=== PATIENT | male | born 1965 | race Caucasian/White ===

== ENCOUNTER 2016-12-30 10:30 | Day surgery (SDC) | payer OTHER ==
[~2016-12-30] VITALS: Ht 162.6 cm; Wt 98.9 kg
[2016-12-30] VITALS (10 sets, daily range): BP systolic 128–156; BP diastolic 76–99; PULSE 54–80; RESP 12–18; O2SAT 92–98
[~2016-12-30 10:30] MED LIST: CeFAZolin Inj 2 GM in IV Premix 1 EACH IV ONE; Lactated Ringer's 1,000 ML IV ONE
[2016-12-30] MEDS ORDERED: Rocuronium 10 mg/mL 5 mL Inj ONE (10:31)
[2016-12-30] MEDS ORDERED: Propofol 10,000 mCg/mL 20 mL Inj ONE (10:31)
[2016-12-30] MEDS ORDERED: Ondansetron 2 mg/mL 2 mL Inj ONE (10:31)
[2016-12-30] MEDS ORDERED: Glycopyrrolate 0.2 mg/mL 5 mL Inj ONE (10:31)
[2016-12-30] MEDS ORDERED: Neostigmine 1 mg/mL 5 mL Inj ONE (10:31)
[2016-12-30] MEDS ORDERED: Dexamethasone 4 mg/mL Inj ONE (10:31)
[2016-12-30] MEDS ORDERED: Ketamine 10 mg/mL 20 mL Inj ONE (10:31)
[2016-12-30] MEDS ORDERED: fentaNYL-PF 50 mCg/mL 2 mL Inj ONE (10:31)
--- NOTE | 2016-12-30 10:32 | PCM.HPANE ---
Patient Data Surgeon Admitting Provider: Attending Provider:Uriel Atkins MD Primary Care Physician: Other Provider: Reason for Visit Left Neck Subcutaneous Scalp Mass, Sebaceous Cyst Ht/WT & BMI Height (Feet): 5 Height (Inches): 3 Weight (Kilograms): 102.51 Body Mass Index 40.00 Allergies Coded Allergies: No Known Allergies (Unverified , 12/25/16) Past Anesthesia History Anesthesia History: Denies:: Anesthesia Reactions, Malignant Hyperthermia Diabetes History Hx Diabetes?: No MRSA MRSA: No Medications No Active Prescriptions or Reported Meds History History of ENT Problems?: Yes Other HEENT Pertinent History: S/P TONSILLECTOMY Hx of Heart Problems?: No Cardiovascular History: Denies:: Heart Murmur Hypertension Hx of Respiratory Problem?: No Respiratory History: Denies:: Use of C-PAP Machine Hx Neurologic Problems?: No Hx of GI Problems?: Yes Gastrointestinal History: Positive for:: Rectal Bleeding (S/P HEMORRHOIDECTOMY ) Other GI Pertinent History: OBESITY Hx of Problems?: No Male Hx: Denies:: Prostate Problems Scrotal Mass Testicular Surgery Skin History: Denies:: History Skin Disorders? 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 Hx Any Other Health Problems?: Yes Other History: Denies:: Cancer Endocrine Disease Hospitalization Thyroid Disease History Blood Transfusions: Denies:: Blood Transfusions Hx Diabetes: No Hx Alcohol Use: YesAlcoholic Drinks Per Day: 1-2/WEEKHave You Smoked inLast 12 mo: No Stop/Bang S-Snoring: Do You Snore Loudly: No T-Tired: feel tired, fatigued: No O-Obsered: Observed not breath: No P-Blood Pressure: treated: No B- Body Mass Index > 35 kg/m2: Yes A- Age over 50: Yes N- Neck Large Circumference: Yes G- Gender Male: Yes CARMELO Total Score: 4 Risk Assessment Category Category 1A: Patient has history of documented sleep apnea, and HAS NOT received any narcotic, sedative or anesthesia administration during this stay. Category 1B: Patient has history of documented sleep apnea, and HAS received any narcotic , sedative or anesthesia administration during this stay Category 2: Patient has SUSPECTED Obstructive Sleep Apnea, and HAS received any narcotic , sedative or anesthesia administration during this stay. Category 3: Patient has SUSPECTED Obstructive Sleep Apnea and HAS NOT received narcotic, sedative or anesthesia administration during this stay. Category 4: Outpatient in Procedural Areas with known sleep apnea or who screen positive for High Risk via the STOP/BANG questionnaire. Exam Exam General Appearance: Alert, Oriented X3, Cooperative, No Acute Distress HEENT/AIRWAY: MP 3 Lungs: Clear to Auscultation, Normal Air Movement Heart: Exam Unremarkable, Normal S1, Normal S2 Plan Impression Patient chart reviewed, patient interviewed and anesthestic plan with risks, benefits, and alternatives discussed, and informed consent obtained. ASA Physical Status: ASA2 Mod Systemic Disease Anesthetic Support Modalities: Hemodynamic Monitoring Anesthetic Plan: GA Bene/Risks/Altern/Consents: Yes HP Complete Prior to Induction: Yes Other will plan OETT due to anticipated need for rotational positioning. Phillip Salazar DO Dec 30, 2016 10:32
[2016-12-30] MEDS ORDERED: Bupivacaine-MPF 0.5% 30 mL Inj INFILTRATE ONE (12:28)
[2016-12-30] MEDS ORDERED: Lactated Ringer's 500 ML IV PRN (13:02)
[2016-12-30] MEDS ORDERED: Lactated Ringer's 1,000 ML IV SCH (13:02)
[2016-12-30] MEDS ORDERED: Ondansetron 2 mg/mL 2 mL Inj IVPUSH PRN (13:05)
[2016-12-30] MEDS ORDERED: Atropine 0.4 mg/mL Inj IVPUSH PRN (13:05)
[2016-12-30] MEDS ORDERED: HYDROmorphone 1 mg/mL Inj IVPUSH PRN (13:05)
[2016-12-30] MEDS ORDERED: Dexamethasone 4 mg/mL Inj IVPUSH PRN (13:05)
[2016-12-30] MEDS ORDERED: Labetalol 5 mg/mL 4 mL Inj IV PRN (13:05)
[2016-12-30] MEDS ORDERED: MetoCLOpramide 5 mg/mL 2 mL Inj IVPUSH PRN (13:05)
[2016-12-30] MEDS ORDERED: fentaNYL-PF 50 mCg/mL 2 mL Inj IVPUSH PRN (13:05)
[2016-12-30] MEDS ORDERED: EPHEDrine Sulfate 50 mg/mL Inj IVPUSH PRN (13:05)
[2016-12-30] MEDS ORDERED: Phenylephrine 10,000 mCg/mL Inj IVPUSH PRN (13:05)
[2016-12-30] MEDS ORDERED: Lactated Ringer's 1,000 ML IV ONE (13:25)
[2016-12-30] MEDS ORDERED: OXYC5TAB72 PO (14:27)
[2016-12-30] MEDS ORDERED: POLY17PO6 PO (14:27)
--- NOTE | 2016-12-30 14:27 | PCM.SURGPO ---
Immediate Operative Note Date of Surgery: Dec 30, 2016 Pre Operative Diagnosis Left Neck Mass, Right scalp Cyst Post Operative Diagnosis Large Left Neck Mass Extending in to the Chest, Right Scalp Cyst Procedure Subtotal Excision of Left Neck Mass Surgeon and Wound Care Rn Surgeon: Uriel Atkins MD Assistants: Alex BLEDSOE, Joanna Otero MS3 Findings Left Neck Mass Extending in to the Chest - Specimen 7X6.5cm 2 cm scalp cyst Complications There were no periprocedural complications identified. Surgical Specimen Removed: Yes Specimen sent to Pathology: Yes Surgical Specimen description: 1. Left Neck Mass 2. R scalp Cyst Anesthetic Administered: GA Grafts, Implants: None Output, Estimated Blood Loss: 0 Blood Admin during surgery: No Attending Statement Honey Blender Listed was medically necessary for the successful completion of the case Uriel Atkins MD Dec 30, 2016 14:27
--- NOTE | 2016-12-30 15:13 | PCM.ANEP1 ---
Post Anesthesia Phase 1 PACU Phase 1 Assessment Date of Service: Dec 30, 2016 Vital Signs Vital Signs Date Time Temp Pulse Resp B/P Pulse Ox O2 Delivery O2 Flow Rate FiO2 12/30/16 15:05 36.5 61 12 145/90 97 Nasal Cannula 12/30/16 14:50 58 14 143/99 97 Nasal Cannula 2 12/30/16 14:45 57 14 148/85 97 Nasal Cannula 4 12/30/16 14:40 55 14 145/82 98 Nasal Cannula 4 12/30/16 14:35 54 14 133/78 92 Nasal Cannula 4 12/30/16 14:30 55 18 144/88 94 Simple Mask 8 12/30/16 14:26 36.2 63 17 128/76 96 Simple Mask 8 12/30/16 11:04 36.7 80 18 143/82 96 Room Air Anesthetic Administered: GA Level of Alertness: Sleepy, easy to arouse COPE's with Equal Strength: Yes Nausea or Vomiting: No Oxygen Delivery: Simple Mask Lungs: Clear to Auscultation, Normal Air Movement Dermatome Level: Full Sensation Phillip Salazar DO Dec 30, 2016 15:13
--- NOTE | 2016-12-30 15:13 | PCM.ANEP2 ---
Post Anesthesia Evaluation ASA/CMS Post Anesthesia VS in Patient's Normal Range?: Yes Resp Stable; Airway Patent?: Yes CV Function & Hydration Stable: Yes Mental Status Recovered?: Yes Pain control Satisfactory?: Yes N/V Control Satisfactory?: Yes Phillip Salazar DO Dec 30, 2016 15:13
--- NOTE | 2016-12-30 16:20 | OP ---
[address] [address] OPERATIVE REPORT PATIENT: UBALDO QUINTERO : 1965 MR#: [id number] ADMIT: 12/30/2016 JOB ID: [id number] DATE OF SURGERY: 12/30/2016 PREOPERATIVE DIAGNOSIS(ES): Large left neck subcutaneous mass and scalp cyst. POSTOPERATIVE DIAGNOSIS(ES): Large left neck mass in the supraclavicular fossa extending into the chest, and a 2 cm scalp cyst, grossly consistent with a sebaceous cyst. PROCEDURE PERFORMED: 1. Subtotal excision of large mass in the left supraclavicular fossa, specimen measuring 7 x 6.5 cm. 2. Excision of scalp cyst measuring 2 cm. SURGEON: Uriel Atkins MD. COUNTY SHERIFF: DIOR Singleton, MS3. COMPLICATIONS: None. INDICATIONS: The patient is a 51-year-old gentleman, who all of a sudden noticed in September 2016 that he has a lump on his neck. This prompted him to go to Urgent Care. He was then sent for an ultrasound and then for surgical consultation. He has not noticed any change in the last couple of months. Ultrasound showed a 6.6 x 4 x 4.3 cm, isoechoic mass, corresponding to the palpable mass in the left supraclavicular fossa. Saw him in clinic and I discussed leaving it alone versus resection, and he strongly desired excision, so after discussing the risks, benefits, and alternatives, he was brought to the operating room today for resection. PROCEDURE DETAILS: He was placed in supine position. Underwent smooth induction of general anesthesia, and then 1st the left neck was prepped and draped in the usual sterile fashion. He was placed in beach chair position and a skin incision was made along Ilda's lines, dividing the skin and subcutaneous tissue. I had to divide the platysma to get to it, so I did that. After entering the supraclavicular fossa, I initially had a little bit of trouble identifying the mass distinct from the fat, but then I was able to get into the right plane. I dissected the mass circumferentially, making sure to avoid any injury to the major vasculature or nerves. I took the dissection inferior, entered inferiorly down to the clavicle and medially to the medial compartment, and posteriorly to the trapezius. I was able to dissect it in an avascular plane, but after dissecting it on three sides, I could not get underneath it inferiorly where it dove down deep to the clavicle into the thoracic cavity. After trying quite some time to mobilize it, I felt it was not safe to proceed further without putting vascular and neural structures at the thoracic inlet at risk. At this point, I decided to amputate the mass near the thoracic inlet and put clips on the intrathoracic portion of the mass for future identification. After ensuring good hemostasis, I infiltrated the site again with local anesthesia and then reapproximated the platysma with 3-0 Vicryls and then closed the skin with running 4-0 Monocryl. Steri-Strips and sterile dressing were applied, and then we repositioned and prepped and draped the scalp lesion. I made an elliptical, 2 cm incision and excised the lesion sharply from the surrounding skin. I did not get into the lesion. After removing the specimen, I closed the wound in layers of 3-0 Vicryl followed by 4-0 Monocryl, obtaining hemostasis. Again, Steri-Strips and sterile dressing were applied. Patient was recovered from anesthesia and was taken to the recovery room in a stable condition.
[2016-12-31] MEDS ORDERED: Polyethylene Glycol (PEG) 17 Gm Powder PO SCH (08:30)
--- NOTE | 2017-01-01 10:45 | PATH ---
SURGICAL PATHOLOGY Attending Physician:Uriel Atkins MD CASE STATUS: Signed Out PATIENT NAME: UBALDO QUINTERO PID: [id number] : 1965 DATE COLLECTED:12/30/2016 00:00 SPECIMEN: 1: Mass, NOS 2: Skin, Cyst CLINICAL HISTORY: LEFT NECK SUBCUTANEOUS MASS, SCALP SEBACEOUS CYST 1). LEFT NECK MASS 7 CM X 6 CM 2). RIGHT SIDE OF HEAD SCALP CYST FINAL DIAGNOSIS: 1.LEFT NECK SUBCUTANEOUS MASS: LIPOMA, NEGATIVE FOR ATYPIA. 2.CYST, RIGHT SIDE OF SCALP: PILAR CYST, NEGATIVE FOR ATYPIA. ICD10 CODE D17.0 GROSS DESCRIPTION: The specimen is received in two formalin filled containers labeled with the patient's name. 1). The specimen is sublabeled "left neck mass" and consists of a 6.0 x 6.0 x 2.2 CM portion of mendez-luz soft tissue. The specimen is inked blue. 3 solar sales representative and assessor sections are submitted in cassettes 1A, 1B, 1C. 2). The specimen is sublabeled "right side of head scalp cyst" and consists of a possible piece of skin and firm smooth walled sac which measures 1.3 x 1.3 x 1.2 CM. The specimen is inked blue. 2 solar sales representative and assessor sections are submitted in cassette 2A. 12/31/2016 [facility] MICRO DESCRIPTION: See diagnosis. ICD-9 CODES: CPT CODES: 1: 88770 2: 23625 Electronically Signed Out Isaak Jean Baptiste MD [facility] Pathology [facility] [address], [place] [address] Technical component performed at [facility], [address] [place] [address] Ave[address], [place], [address]
== END 2016-12-30 23:59 | disposition home or self-care (01) ==
LOC: SAS 10:30
PROVIDERS: ATTEND Student in an Organized Health Care Education/Training Program
DX: D17.0 Benign lipomatous neoplasm of skin and subcutaneous tissue of head, face and neck (principal); L72.3 Sebaceous cyst; E66.9 Obesity, unspecified; M19.90 Unspecified osteoarthritis, unspecified site; Z79.899 Other long term (current) drug therapy
CPT/HCPCS: 11422; 21552; J0690; J2250; J3010; J7120